=== PATIENT | male | born 1970 | race African-American/Black ===

== ENCOUNTER 2019-05-30 12:19 | Emergency (ER) | payer BC, SELFPAY ==
[2019-05-30 12:31] VITALS: BP 116/80; PULSE 88; RESP 18; TEMP 37; O2SAT 100
--- NOTE | 2019-05-30 12:58 | ED.GENADULT ---
HPI - General Adult General Chief complaint: Neck Pain/Injury Stated complaint: neck/arm pain Time Seen by Provider: 05/30/19 12:58 Source: patient and RN notes reviewed Mode of arrival: ambulatory Limitations: no limitations History of Present Illness HPI narrative: 48-year-old -[place] male presents with complaints of left shoulder pain for the past 4 days. Flexeril (last 05/27/19) and Naproxen (last 05/29/19) with some relief. No known injury. History of chronic back pain. Denies neck injuries or surgeries. Denies new numbness or tingling. Hurts with movement of shoulder. Intermittent pain radiates from top of shoulder down anterior arm into 3rd finger. No loss of mobility. No swelling. Exacerbating factor is movement. Relieving factor is rest and pain medication. The dominant hand is the RIGHT HAND. Remains active. Denies fever or chills. Denies nausea, vomiting, abdominal pain, shortness of breath, chest pain, or recent traveling. Some parts of this dictation were generated by voice recognition software and may contain typographical and/or grammatical inaccuracies. Related Data Home Medications Medication Instructions Recorded Confirmed albuterol sulfate [Ventolin HFA] 2 puff INHALATION QID 05/30/19 05/30/19 carvedilol [Coreg] 12.5 mg PO BID 05/30/19 05/30/19 cyclobenzaprine 10 mg PO HS 05/30/19 05/30/19 glimepiride 2 mg PO BID 05/30/19 05/30/19 hydrochlorothiazide 25 mg PO DAILY 05/30/19 05/30/19 hydrocodone-acetaminophen 1 tablet PO Q6H 05/30/19 05/30/19 losartan 12.5 mg PO DAILY 05/30/19 05/30/19 naproxen 500 mg PO BID 05/30/19 05/30/19 sitagliptin-metformin [Janumet] 1 tablet PO BID 05/30/19 05/30/19 tramadol 50 mg PO Q6H 05/30/19 05/30/19 Allergies Allergy/AdvReac Type Severity Reaction Status Date / Time morphine Allergy Intermediate Other Verified 09/07/18 18:36 lisinopril AdvReac Intermediate Cough Verified 09/07/18 18:36 NSAIDS (Non-Steroidal AdvReac Intermediate Other Verified 09/07/18 18:36 Anti-Inflamma Review of Systems Review of Systems: Narrative: CONSTITUTIONAL: Denies fever, chills, sweats. EYES: Denies visual changes, redness, discharge. ENT: Denies rhinorrhea, congestion, sore throat, otalgia. CARDIOVASCULAR: Denies chest pain, palpitations, edema. RESPIRATORY: Denies dyspnea, wheezing, cough. GASTROINTESTINAL: Denies abdominal pain, nausea, vomiting, diarrhea. GENITOURINARY: Denies dysuria, hematuria, abnormal discharge. SKIN: Denies rash or itching. MUSCULOSKELETAL: Denies acute back pain or myalgia. Complains of LT shoulder pain. NEUROLOGIC: Denies numbness or focal weakness. PSYCHIATRIC: Denies anxiety or depression. All other systems reviewed & are unremarkable except as noted in HPI and below. [facility] Past Medical History Medical History (Updated 05/30/19 @ 13:23 by MARGA Harley) Back pain Diabetes Hypertension Surgical History Surgical History (Updated 05/30/19 @ 13:12 by MARGA Harley) No significant past surgical history Family History Family History (Updated 05/30/19 @ 13:14 by MARGA Harley) Mother Diabetes mellitus Hypertension Father Diabetes mellitus Hypertension Social History Social History (Updated 05/30/19 @ 13:15 by MARGA Harley) Smoking status: Never smoker Tobacco type: cigarettes Second hand tobacco smoke exposure: No Alcohol intake: never Substance use: never Living arrangements: with family Occupation/Education: occupation Gender identity (if verbalized by the patient): Male Comments At time of signature, agree with nurse past medical, surgical, social, and family history. There is no relevant family history pertinent to the presenting complaint. Exam Narrative: Exam Narrative: GENERAL: This is a well-nourished, well-developed patient, in no apparent distress. Talks in full sentences and ambulates with steady gait without dyspnea. HEAD: normoce
[2019-05-30] MEDS: KETOROLAC (*BKC) 60 MG/2 ML VIAL IM (13:12)
--- NOTE | 2019-05-30 13:24 | PC.NURSE ---
1306- Pt states, he has taken Toradol before with no issues.
== END 2019-05-30 13:42 | disposition home or self-care (01) ==
PROVIDERS: Emergency Provider Nurse Practitioner Family
DX: M25.512 Pain in left shoulder (principal); E11.9 Type 2 diabetes mellitus without complications; I10 Essential (primary) hypertension
CPT/HCPCS: 96372; 99213; G0463; J1885

== ENCOUNTER 2019-06-27 10:19 | Emergency (ER) | payer BC, SELFPAY ==
[2019-06-27 10:29] VITALS: BP 130/82; PULSE 85; RESP 18; TEMP 37.3; O2SAT 99
--- NOTE | 2019-06-27 10:34 | ED.UPPEXIN ---
HPI - Extremity Injury (Upper) General Chief Complaint: Extremity Injury, Upper Stated Complaint: left arm pain Time Seen by Provider: 06/27/19 10:33 Source: patient and RN notes reviewed Mode of arrival: ambulatory Limitations: no limitations History of Present Illness HPI narrative: 48-year-old male presents with concern for left shoulder pain. Reports history of similar pain that started 1 month ago. Reports he was seen in this clinic and given an injection that helped. 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 Reports left lateral shoulder tenderness, pain when sleeping. Denies chest pain, shortness of breath, palpitations. Denies weakness, numbness to left arm or hand MD complaint: injury to: left and shoulder Related Data Home Medications Medication Instructions Recorded Confirmed albuterol sulfate [Ventolin HFA] 2 puff INHALATION QID 05/30/19 05/30/19 carvedilol [Coreg] 12.5 mg PO BID 05/30/19 05/30/19 cyclobenzaprine 10 mg PO HS 05/30/19 05/30/19 glimepiride 2 mg PO BID 05/30/19 05/30/19 hydrochlorothiazide 25 mg PO DAILY 05/30/19 05/30/19 hydrocodone-acetaminophen 1 tablet PO Q6H 05/30/19 05/30/19 losartan 12.5 mg PO DAILY 05/30/19 05/30/19 naproxen 500 mg PO BID 05/30/19 05/30/19 sitagliptin-metformin [Janumet] 1 tablet PO BID 05/30/19 05/30/19 tramadol 50 mg PO Q6H 05/30/19 05/30/19 Allergies Allergy/AdvReac Type Severity Reaction Status Date / Time morphine Allergy Intermediate Other Verified 09/07/18 18:36 lisinopril AdvReac Intermediate Cough Verified 09/07/18 18:36 NSAIDS (Non-Steroidal AdvReac Intermediate Other Verified 09/07/18 18:36 Anti-Inflamma Review of Systems Review of Systems: Narrative: CONSTITUTIONAL: Denies malaise, chills, sweats, or fever. CARDIOVASCULAR: Denies chest pain, palpitations, or edema. RESPIRATORY: Denies dyspnea. GASTROINTESTINAL: Denies abdominal pain, nausea, vomiting SKIN: Denies bruising, redness, swelling MUSCULOSKELETAL: Reports left shoulder pain NEUROLOGIC: Denies numbness, weakness All systems reviewed & are unremarkable except as noted in HPI and below PMFSH Past Medical History Medical History (Updated 06/27/19 @ 10:42 by Kalani Grant NP) Back pain Diabetes Hypertension Surgical History Surgical History (Updated 05/30/19 @ 13:12 by MARGA Harley) No significant past surgical history Family History Family History (Updated 05/30/19 @ 13:14 by MARGA Harley) Mother Diabetes mellitus Hypertension Father Diabetes mellitus Hypertension Social History Social History (Updated 05/30/19 @ 13:15 by MARGA Harley) Smoking status: Never smoker Tobacco type: cigarettes Second hand tobacco smoke exposure: No Alcohol intake: never Substance use: never Gender identity (if verbalized by the patient): Male Comments At time of signature, agree with nursing past medical, surgical, social and family history. There is no relevant family history pertinent to the presenting complaint Exam Narrative: Exam Narrative: GENERAL: Well-appearing, well-nourished, and in no acute distress. HEAD: Normocephalic, atraumatic. EYES: PERRLA, conjunctivae clear NECK: Supple. CHEST: Speaks in full sentences. No respiratory distress. HEART: Regular rate and rhythm. Normal and equal peripheral pulses. EXTREMITIES: Left shoulder, arm, digits of left hand have normal strength and sensation, no edema, normal range of motion. 5/5 strength with shoulder abduction and abduction. Normal sensation with sensitivity to light touch and pain. No open wounds, no skin tenting, no devitalized tissue or atrophy, no trophic changes, no ecchymosis, no obvious deformity, alignment normal, left lateral tenderness, nearby joints and structures intact. Distal pulses palpable and equal bilaterally, skin warm, dry, pink. Capillary refill less than 3 second
== END 2019-06-27 10:51 | disposition home or self-care (01) ==
PROVIDERS: Emergency Provider Nurse Practitioner
DX: S49.92XD Unspecified injury of left shoulder and upper arm, subsequent encounter (principal); I10 Essential (primary) hypertension; E11.9 Type 2 diabetes mellitus without complications; X50.0XXA Overexertion from strenuous movement or load, initial encounter
CPT/HCPCS: 99213; G0463

== ENCOUNTER 2020-09-19 01:09 | Day surgery (SDC) | payer BC, SELFPAY ==
[2020-09-18 14:30] VITALS: BMI 56.8
[2020-09-19] VITALS (8 sets, daily range): BP systolic 130–165; BP diastolic 89–103; PULSE 74–89; RESP 16–22; TEMP 36.3; O2SAT 97–100; BMI 56.9
[2020-09-19 08:10] LABS: Basophils Percent Auto 0.4 % (0.2-1.2); Eosinophils Absolute Auto 0.1 K/mm3 (0-0.3); Eosinophils Percent Auto 1.5 % (0-4.4); Hematocrit 41.9 % (42.0-52.0); Hemoglobin 13.7 g/dL (14.0-18.0); Immature Granulocyte Absolute 0.02 K/mm3 (0.00-0.031); Immature Granulocyte Percent A 0.3 % (0-0.5); Lymphocytes Absolute Auto 2.14 K/mm3 (0.9-3.2); Lymphocytes Percent Auto 32.1 % (18.3-44.2); Mean Corpuscular HGB Conc 32.7 g/dl (32-36); Mean Corpuscular Hemoglobin 28.8 pg (26-34); Mean Corpuscular Volume 88.2 fl (80-100); Mean Platelet Volume 9.3 fl (7.4-10.4); Monocytes Absolute Auto 0.7 K/mm3 (0.1-0.6); Monocytes Percent Auto 10.5 % (2.6-8.5); Neutrophils Absolute Auto 3.7 K/mm3 (1.3-6.7); Neutrophils Percent Auto 55.2 % (45.5-73.1); Platelet Count Result 209 k/mm3 (150-375); Red Blood Count 4.75 M/mm3 (4.6-6.20); Red Cell Distribution Width 12.5 % (11.5-14.5); White Blood Count 6.7 K/mm3 (4.5-10.0)
[2020-09-19 08:20] LABS: Anion Gap 9 mmol/L (8-16); Blood Urea Nitrogen 13 mg/dL (9-20); Calcium 9.6 mg/dL (8.4-10.2); Carbon Dioxide 28 mmol/L (22-30); Chloride 99 mmol/L (98-107); Estimated CRCL calculation 125 ml/min; Estimated Glomerular Filt Rate > 60; Glucose 188 mg/dL (65-110); Potassium 3.8 mmol/L (3.4-5.0); Sodium 136 mmol/L (137-145)
[2020-09-19 08:26] LABS: Prothrombin Time 12.6 Seconds (11.1-14.7)
--- NOTE | 2020-09-19 09:07 | PM.IMHP ---
H&P: HPI History of Present Illness Date/Time: 09/19/20 09:07 Chief Complaint: Patient is here for cardiac catheterization Narrative: this is 40 old patient history of hypertension, hyperlipidemia, type 2 diabetes, sleep apnea on CPAP who was evaluated by Dr. landrum prior to planned surgery for gastric bypass. He has been experiencing intermittent episodes of chest pain. Underwent stress test that shows small area of possible ischemia. Chest pain is intermittent, left chest pain with no aggravating or relieving factors. Denies shortness breath, lower limb edema, dizziness or syncope Review of Systems Review of Systems: All systems reviewed & are unremarkable except as noted in HPI and below Constitutional: Constitutional: Denies chills, Denies fatigue, Denies fever(s), Denies headache(s) and Denies snoring Eyes: Eyes: Denies eye discharge and Denies loss of vision ENT: Denies dizziness, Denies headache(s), Denies nasal discharge and Denies sore throat Cardiovascular: Cardiovascular: Reports as per HPI, Reports chest pain, Denies syncope, Denies rapid heart rate, Denies leg edema, Denies dyspnea, Denies dyspnea on exertion, Denies orthopnea and Denies paroxysmal nocturnal dyspnea Respiratory: Respiratory: Denies chest congestion, Denies cough, Denies dyspnea, Denies dyspnea on exertion, Denies snoring and Denies wheezing Gastrointestinal: Gastrointestinal: Denies abdominal pain, Denies diarrhea, Denies nausea and Denies vomiting Genitourinary: Genitourinary: Denies hematuria, Denies dysuria, Denies flank pain and Denies urinary frequency Musculoskeletal: Musculoskeletal: Denies myalgias, Denies arthralgias and Denies joint swelling Neurologic: Denies Abnormal speech present, Denies dizziness, Denies syncope, Denies headache(s), Denies focal weakness and Denies loss of vision Psychiatric: Psychiatric: Denies anxiety and Denies depression Endocrine: Endocrine: Denies cold intolerance, Denies fatigue and Denies heat intolerance Hematologic/Lymphatic: Hematologic/Lymphatic: Denies easy bleeding and Denies easy bruising Allergic/Immunologic: Allergic/Immunologic: Denies urticaria and Denies wheezing PMFSH Past Medical History Medical History Back pain Diabetes Hypertension Surgical History Surgical History No significant past surgical history Family History Family History Mother Diabetes mellitus Hypertension Father Diabetes mellitus Hypertension Social History Social History Smoking status: Never smoker Tobacco type: cigarettes Second hand tobacco smoke exposure: No Alcohol intake: never Substance use: never Substance use type: does not use Living arrangements: with family Gender identity (if verbalized by the patient): Male Spiritual care concerns: No Meds Home Medications and Allergies Home Medications Medication Instructions Recorded Confirmed Type carvedilol [Coreg] 12.5 mg PO BID 05/30/19 09/19/20 History cyclobenzaprine 10 mg PO HS 05/30/19 09/18/20 History glimepiride 2 mg PO BID 05/30/19 09/18/20 History hydrochlorothiazide 25 mg PO DAILY 05/30/19 09/18/20 History hydrocodone-acetaminophen 1 tablet PO Q6H 05/30/19 09/18/20 History losartan 12.5 mg PO DAILY 05/30/19 09/19/20 History naproxen 500 mg PO BID 05/30/19 09/18/20 History tramadol 50 mg PO Q6H 05/30/19 09/18/20 History pantoprazole 40 mg PO QAM 09/18/20 09/19/20 History rosuvastatin 20 mg PO DAILY 09/18/20 09/19/20 History semaglutide [Rybelsus] 7 mg PO DAILY 09/18/20 09/18/20 History Allergies Allergy/AdvReac Type Severity Reaction Status Date / Time lisinopril Allergy Intermediate Cough Verified 09/19/20 08:12 morphine Allergy Intermediate Drowsy Verified 09/19/20 08:12 ibuprof
--- NOTE | 2020-09-19 09:10 | WPDMODSED ---
Moderate Sedation Note-Pt Data Patient Data Allergies Allergy/AdvReac Type Severity Reaction Status Date / Time lisinopril Allergy Intermediate Cough Verified 09/19/20 08:12 morphine Allergy Intermediate Drowsy Verified 09/19/20 08:12 ibuprofen AdvReac Mild Gastrointestinal Verified 09/19/20 08:12 Upset Home Medications Medication Instructions Recorded Confirmed Type carvedilol [Coreg] 12.5 mg PO BID 05/30/19 09/19/20 History cyclobenzaprine 10 mg PO HS 05/30/19 09/18/20 History glimepiride 2 mg PO BID 05/30/19 09/18/20 History hydrochlorothiazide 25 mg PO DAILY 05/30/19 09/18/20 History hydrocodone-acetaminophen 1 tablet PO Q6H 05/30/19 09/18/20 History losartan 12.5 mg PO DAILY 05/30/19 09/19/20 History naproxen 500 mg PO BID 05/30/19 09/18/20 History tramadol 50 mg PO Q6H 05/30/19 09/18/20 History pantoprazole 40 mg PO QAM 09/18/20 09/19/20 History rosuvastatin 20 mg PO DAILY 09/18/20 09/19/20 History semaglutide [Rybelsus] 7 mg PO DAILY 09/18/20 09/18/20 History Current Medications: Active Medications Sodium Chloride (Normal Saline Iv) 500 mls @ 100 mls/hr IV CONT .Q5H KRYSTIN Sedation/Anesthesia: No previous sedation/anesthesia problems (including family history). [facility] Past Medical History Medical History Back pain Diabetes Hypertension Surgical History Surgical History No significant past surgical history Family History Family History Mother Diabetes mellitus Hypertension Father Diabetes mellitus Hypertension Social History Social History Smoking status: Never smoker Tobacco type: cigarettes Second hand tobacco smoke exposure: No Alcohol intake: never Substance use: never Substance use type: does not use Living arrangements: with family Gender identity (if verbalized by the patient): Male Spiritual care concerns: No Mod Sed Physical Exam Physical Exam Pre Procedural Exam: Normal: Appearance, Eyes, Ears, Nose, Neck, Throat, Airway, Lungs, Heart Size, Heart Rate, Heart Rhythm, Neuro Exam, Abdomen, Liver, Kidneys, Spleen, Breasts, Genitalia, Extremities and Skin Hours since solid foods: 8 Hours since liquid intake: 8 Mallampati Classification: class II Internal Medicine - PN: Obj Da Vital Signs Vital Signs: Vital Signs - 24 hr 09/19/20 08:20 Temperature 36.3 C L Pulse Rate 87 Respiratory Rate 18 Blood Pressure 146/91 H Pulse Oximetry 97 Meds/Results Medications: Active Medications Generic Name Dose Route Start Last Admin Trade Name Freq PRN Reason Stop Dose Admin Sodium Chloride 500 mls @ 100 mls/hr 09/19/20 07:30 Normal Saline Iv IV CONT .Q5H KRYSTIN Labs CBC & Chem 7: 09/19/20 08:01 09/19/20 08:01 Labs: Laboratory Results - last 24 hr 09/19/20 09/19/20 09/19/20 08:01 08:01 08:01 WBC 6.7 RBC 4.75 Hgb 13.7 L Hct 41.9 L MCV 88.2 MCH 28.8 MCHC 32.7 RDW 12.5 Plt Count 209 MPV 9.3 Immature Gran % (Auto) 0.3 Neut % (Auto) 55.2 Lymph % (Auto) 32.1 [place] % (Auto) 10.5 H Eos % (Auto) 1.5 Baso % (Auto) 0.4 Lymph # (Auto) 2.14 [place] # (Auto) 0.7 H Eos # (Auto) 0.1 Baso # (Auto) 0.0 Abs Immat Gran (auto) 0.02 Absolute Neuts (auto) 3.7 Absolute Nucleated RBC 0.0 Nucleated RBC % 0.0 PT 12.6 INR 1.0 Sodium 136 L Potassium 3.8 Chloride 99 Carbon Dioxide 28 Anion Gap 9 BUN 13 Creatinine 1.10 Estim Creat Clear Calc 125 Estimated GFR > 60 Glucose 188 H Calcium 9.6 ASA Classification/Sedation ASA Classification/Sedation ASA Class: I Emergent: No Risks: Risks, benefits and alternatives explained and patient/family accepted plan for sedation. Patient re-
--- NOTE | 2020-09-19 09:31 | WPDCARDPROC ---
Cardiac Cath Procedure Note Date of procedure:: 09/19/20 Performing physician:: Chiquita Reina MD Date of service 09/19/2020 Indication:: abnormal stress test Brief clinical history:: this is 49 old patient history of hypertension, hyperlipidemia, type 2 diabetes, sleep apnea on CPAP who was evaluated by Dr. landrum prior to planned surgery for gastric bypass. He has been experiencing intermittent episodes of chest pain. Underwent stress test that shows small area of possible ischemia. Chest pain is intermittent, left chest pain with no aggravating or relieving factors. Denies shortness breath, lower limb edema, dizziness or syncope Procedure Procedure performed:: 1-Moderate sedation that started at 9:44 a.m. and ended at 10:01 a.m. with total duration 16 minutes using 1mg of Versed and 25mcg fentanyl. The registered nurse was Maru Barbosa. 2-Selective left and right coronary angiogram. 3-Left heart catheterization with measurement of LVEDP and measurement of gradient across aortic valve. 4-Right common femoral arterial angiogram. 5-Deployment of 6 [place] Angio-Seal. Sedation/Medication given:: Moderate sedation. Access site:: Right common femoral artery. Estimated blood loss:: 10cc Procedure note:: After informed consent patient was brought in to rn cardiac cath with the was draped and prepped in usual manner. Moderate sedation was given and the right groin was infiltrated using 1% lidocaine. Five [place] sheath was obtained using micropuncture needle and the modified Seldinger technique. Selective left coronary angiogram was done using JL4 catheter with the tip of the catheter placed in the left main coronary artery. Selective right coronary angiogram was done using JR4 catheter with the tip of the catheter placed to the right coronary artery. After that 5 [place] pigtail catheter was advanced across the aortic valve into the left ventricle with measurement of LVEDP and measurement of gradient across aortic valve. Right common femoral arterial angiogram was done. Findings:: 1- left coronary artery is a large artery that divides into large LAD, large circumflex artery. Left main is free of disease. 2- left anterior descending artery is a large artery that runs and wraps around the apex. it is free of disease. There are 3 medium-sized diagonal branches are free of disease 3- leftcircumflex artery is a very large artery and dominant. free of disease. large OM1 and OM2 free of disease. left PDA medium in size and free of disease. 4- right coronary artery is medium in size and nondominant and free of disease 5- LVEDP was 15 mm Hg and no gradient across aortic valve. 6- opening arterial pressure was 130/80 and closing pressure was 120/70 7- right femoral artery angiogram shows no significant disease in the right common femoral artery. Conclusion:: - no coronary artery disease. - false-positive stress test. Assessment and Plan Additional Plan continue aggressive risk factor modification for CAD. Weight loss.
--- NOTE | 2020-09-19 13:30 | SUR.PHASEII ---
DISCHARGE INSTRUCTIONS GIVEN AND REVIEWED W/ PT. QUESTIONS ANSWERED. VOICED UNDERSTANDING OF ALL. NOTE RE: RETURN TO WORK AND RESTRICTIONS REQUIRED GIVEN PREPARED BY LINA BOBO NP. NO CHANGE IN R. GROIN SITE. GAUZE AND TEGADERM DRESSING C/D/I TO SITE. HAS ANGIOSEAL CLOSURE TO PUNCTURE. SITE SOFT, NONTENDER. NO BLEEDING OR HEMATOMA NOTED. R. PEDAL PULSE PALP STRONG. DISCHARGED HOME, OUT VIA WC TO 'S WAITING CAR, WITH ALL PERSONAL BELONGINGS AND DISCHARGE PACKET. VOICES NO C/O. NO DISTRESS NOTED.
== END 2020-09-19 13:30 | disposition home or self-care (01) ==
PROVIDERS: Visit Provider Internal Medicine Cardiovascular Disease
PROC: 4A023N7 Measurement of Cardiac Sampling and Pressure, Left Heart, Percutaneous Approach (ICD-10-PCS; CPT 93452; principal; 2020-09-19 09:00)
DX: R94.39 Abnormal result of other cardiovascular function study (principal); R07.9 Chest pain, unspecified; I10 Essential (primary) hypertension; E78.5 Hyperlipidemia, unspecified; E11.9 Type 2 diabetes mellitus without complications; G47.33 Obstructive sleep apnea (adult) (pediatric); E66.01 Morbid (severe) obesity due to excess calories; Z68.43 Body mass index [BMI] 50.0-59.9, adult
CPT/HCPCS: 36415; 80048; 85025; 85610; 93458; C1760; C1887; C1894; G0269; J1644; J2250; J3010; J7040

== ENCOUNTER 2020-12-31 14:19 | Emergency (ER) | payer BC, SELFPAY ==
[2020-12-31 14:28] VITALS: BP 151/93; PULSE 95; RESP 18; TEMP 36.5; O2SAT 100
[2020-12-31 17:01] VITALS: BP 128/92; PULSE 73; RESP 16; TEMP 37.1; O2SAT 99
[2020-12-31] MEDS: KETOROLAC (*BKC) 60 MG/2 ML VIAL IM (17:12)
--- NOTE | 2020-12-31 17:16 | ED.GENADULT ---
HPI - General Adult General Chief complaint: Neck Pain/Injury Stated complaint: neck pain Time Seen by Provider: 12/31/20 16:19 Source: patient Mode of arrival: ambulatory Limitations: no limitations History of Present Illness HPI narrative: Patient is a 50-year-old male with history of chronic back pain presenting with chief complaint of pain to the left side of his neck that has been present since September. Patient reports he followed up with his primary care regarding his symptoms and he was diagnosed with muscle spasm. Patient states that his symptoms persisted and he also noticed a small swelling to the posterior aspect of left side of his head so he came to the emergency department to be evaluated as the pain increased on today. Patient denies fever, chills, neck rigidity, trauma or any other symptoms. Related Data Home Medications Medication Instructions Recorded Confirmed carvedilol [Coreg] 12.5 mg PO BID 05/30/19 09/19/20 cyclobenzaprine 10 mg PO HS 05/30/19 09/18/20 glimepiride 2 mg PO BID 05/30/19 09/18/20 hydrochlorothiazide 25 mg PO DAILY 05/30/19 09/18/20 hydrocodone-acetaminophen 1 tablet PO Q6H 05/30/19 09/18/20 losartan 12.5 mg PO DAILY 05/30/19 09/19/20 naproxen 500 mg PO BID 05/30/19 09/18/20 tramadol 50 mg PO Q6H 05/30/19 09/18/20 Rybelsus 7 mg PO DAILY 09/18/20 09/18/20 pantoprazole 40 mg PO QAM 09/18/20 09/19/20 rosuvastatin 20 mg PO DAILY 09/18/20 09/19/20 Allergies Allergy/AdvReac Type Severity Reaction Status Date / Time lisinopril Allergy Intermediate Cough Verified 09/19/20 08:12 morphine Allergy Intermediate Drowsy Verified 09/19/20 08:12 ibuprofen AdvReac Mild Gastrointestinal Verified 09/19/20 08:12 Upset Review of Systems Review of Systems: CONSTITUTIONAL: Denies fever, chills, or sweats. EYES: Denies visual changes, redness, or discharge. ENT: Denies rhinorrhea, congestion, sore throat, or otalgia. CARDIOVASCULAR: Denies chest pain, palpitations, or edema. RESPIRATORY: Denies cough or dyspnea. GASTROINTESTINAL: Denies abdominal pain, nausea, vomiting, or diarrhea. GENITOURINARY: Denies dysuria or hematuria. SKIN: Reports swelling denies rash or itching. MUSCULOSKELETAL: Reports muscle pain denies back pain, joint pain NEUROLOGIC: Denies headache, numbness, dizziness, or weakness. PSYCHIATRIC: Denies anxiety or depression. PMFSH Past Medical History Medical History Back pain Diabetes Hypertension Surgical History Surgical History No significant past surgical history Family History Family History Mother Diabetes mellitus Hypertension Father Diabetes mellitus Hypertension Social History Social History Smoking status: Never smoker Tobacco type: cigarettes Second hand tobacco smoke exposure: No Alcohol intake: never Substance use: never Substance use type: does not use Gender identity (if verbalized by the patient): Male Spiritual care concerns: No Exam Narrative: GENERAL: Well-appearing, well-nourished, and in no acute distress. HEAD: Normocephalic, atraumatic. EYES: PERRLA and EOMI. ENT: Nares clear, no rhinorrhea or epistaxis. Mucous membranes moist. Oropharynx without tonsillar hypertrophy exudate or other lesions. Bilateral TMs pearly santos nonbulging NECK: Supple. No adenopathy or masses. Spasm palpated to the left paracervical muscle. There is a small mobile tender lymph node noted at the left nape of the neck. It is not erythematous or fluctuant no signs of infection. SKIN: Warm, dry, no rash. NEURO: No focal deficits. Alert and oriented x3. PSYCH: Normal mood and affect. Course Vital Signs Vital signs: Vital Signs Temperature 97.7 F 12/31/20 14:28 Pulse Rate 95 12/31/20 14:28 Respiratory Rate 1
[2020-12-31 17:42] VITALS: TEMP 37.1
== END 2020-12-31 18:10 | disposition home or self-care (01) ==
PROVIDERS: Emergency Provider Emergency Medicine
DX: M43.6 Torticollis (principal); R59.1 Generalized enlarged lymph nodes; E11.9 Type 2 diabetes mellitus without complications; I10 Essential (primary) hypertension; Z79.84 Long term (current) use of oral hypoglycemic drugs
CPT/HCPCS: 96372; 99283; J1885

== ENCOUNTER 2021-07-08 12:24 | Outpatient (CLI) | payer BC, SELFPAY ==
--- NOTE | 2021-07-08 12:33 | ECG_ITS ---
Measurements Intervals [place] Rate: 65 P: 30 ND: 166 QRS: 10 QRSD: 109 T: 22 QT: 407 QTc: 424 Interpretive Statements SINUS RHYTHM BASELINE WANDER- V4-V6 NORMAL ECG Electronically Signed On 07-08-2021 13:07:48 CDT by Randall Braxton D.O.
[2021-07-08 13:24] LABS: Anion Gap -4 mmol/L (8-16); Blood Urea Nitrogen 17 mg/dL (9-20); Calcium 9.3 mg/dL (8.4-10.2); Carbon Dioxide 37 mmol/L (22-30); Chloride 104 mmol/L (98-107); Estimated Glomerular Filt Rate > 60; Glucose 88 mg/dL (65-110); Potassium 3.7 mmol/L (3.4-5.0); Sodium 137 mmol/L (137-145)
== END 2021-07-08 12:25 | disposition home or self-care (01) ==
PROVIDERS: Anesthesiology; Visit Provider Urology
DX: Z01.818 Encounter for other preprocedural examination (principal); I10 Essential (primary) hypertension; E11.9 Type 2 diabetes mellitus without complications
CPT/HCPCS: 36415; 80048; 93005

== ENCOUNTER 2021-07-15 00:06 | Day surgery (SDC) | payer BC, SELFPAY ==
[2021-07-08 09:38] VITALS: BMI 35.2
--- NOTE | 2021-07-08 09:44 | PC.NURSE ---
Report to the Outpatient Waiting Room, entrance under the green pavilion located off [facility], at time ___0600____ on date 07/15/21____. OR Time: ____729____. - You and your visitor will be asked a series of questions to screen for COVID 19 for your protection. - Only one visitor is allowed at this time. - The patient visitor is requested to leave or wait in car when not with patient. - A mask is required within the hospital. Patients may have clear liquids (water, carbonated beverages, clear teas, apple juice) until 3 hours prior to surgery with a maximum of 20 ounces. - No food from midnight until time of surgery - Infants may have breast milk until 4 hours before surgery, infant formula 6 hours prior to surgery. - Children will be allowed to drink immediately following surgery. If applicable, please bring a bottle or sippy cup to assist with drinking. Juice, water, soda, and popsicles are readily available. For infants on formula, please bring formula the day of surgery. Pacifiers are allowed. Take the following medications with a SIP of water the morning of surgery: ___COREG, PAIN PILL IF NEEDED Medications to discontinue per physician VITAMINS AND SUPPLIMENTS Date to take last dose 07/11/21 Please no make-up, nail mauritian, hairspray, perfume, deodorant, or body powder the day of surgery. No jewelry (including any body piercings) or valuables the day of surgery, leave them at home. Please take a shower or bath the night before, or the morning of, surgery with an antibacterial soap. Wear comfortable, loose fitting clothing. Children are encouraged to wear pajamas. - Jewelry must be removed prior to entering the operating room. Rings and piercings that are not removed may be cut off. - The hospital will not accept responsibility for valuables. - Please leave all valuables, including medications, at home the day of surgery. If you are going home after surgery, a licensed pile driver operator must drive you home. - NO public transportation without another adult. - We recommend that an adult stay with you for 24 hours following discharge. - We also recommend that you do not drive, make important decision, drink alcoholic beverages, or take any drugs that were not prescribed by your health care provider for at least 24 hours after your discharge time. For Pediatric surgeries, we recommend two adults accompany the child home (only one inside the building at this time). Follow any additional instructions given to you from your surgeon. If you or anyone in your household have experienced Covid symptoms in the past week, please notify your surgeon or the nurse liaison at the phone number below for possible testing. Telephone instructions given to _PATIENT and asked if any additional questions and then verbalized understanding. Patient advised to call surgeon office or pre surgery nurse liaison [phone] if any additional questions.
[2021-07-15] VITALS (8 sets, daily range): BP systolic 125–149; BP diastolic 79–95; PULSE 57–81; RESP 14–20; TEMP 36.2–36.5; O2SAT 97–100
[2021-07-15] MEDS: LACTATED RINGERS 1,000 ML 30 ML IV CONT (06:30)
[2021-07-15 06:39] LABS: Glucose Point of Care 89 mg/dl (65-105)
--- NOTE | 2021-07-15 06:42 | WPDANESEPPF ---
Anes - Initial Pre Proc Eval Procedure: Operation Date: 07/15/21 07:30 Proposed Procedures p Bilateral Vasectomy with Scrotal Exploration - Ephraim Manriquez MD Date/Time: 07/15/21 06:42 Surgeon: Ephraim Manriquez MD Pre Op Diagnosis: male sterilization, Patient Data Age: 50 Gender: M Height: 1.83 m Weight: 118 kg Allergies Allergy/AdvReac Type Severity Reaction Status Date / Time lisinopril Allergy Intermediate Cough Verified 07/15/21 06:02 morphine AdvReac Intermediate Drowsy Verified 07/15/21 06:02 ibuprofen AdvReac Mild Gastrointestinal Verified 07/15/21 06:02 Upset Home Medications Medication Instructions Recorded Confirmed Type carvedilol 12.5 mg tablet (Coreg) 12.5 mg PO BID 05/30/19 07/15/21 History cyclobenzaprine 10 mg tablet 10 mg PO HS PRN back spasms 05/30/19 07/15/21 History hydrocodone 10 mg-acetaminophen 1 tablet PO Q6H PRN Back Pain 05/30/19 07/15/21 History 325 mg tablet tramadol 50 mg tablet 50 mg PO Q6H PRN Back Pain 05/30/19 07/08/21 History rosuvastatin 20 mg tablet 20 mg PO DAILY 09/18/20 07/15/21 History cholecalciferol (vitamin D3) 50 50 mcg PO DAILY 07/08/21 07/15/21 History mcg (2,000 unit) capsule (Vitamin D3) ferrous sulfate 325 mg (65 mg 325 mg PO DAILY 07/08/21 07/15/21 History iron) tablet (Iron (ferrous sulfate)) metformin 500 mg tablet 250 mg PO DAILY 07/08/21 07/15/21 History multivitamin with minerals-folic 1 tablet PO DAILY 07/08/21 07/15/21 History acid 200 mcg chewable tablet (Adult Multivitamin Gummies) potassium chloride 20 mEq 20 meq PO BID 07/08/21 07/15/21 History tablet,extended release(part/cryst) losartan 25 mg tablet 25 mg PO DAILY 07/15/21 07/15/21 History Laboratory Tests 07/15/21 06:35 POC Capillary Glucose 89 mg/dl mg/dl (65-105) Patient hx anesthesia problems: none Family hx anesthesia problems: none Results Review: All pre-operative results and documents have been reviewed as part of the pre-operative evaluation. [facility] Past Medical History Medical History (Updated 07/15/21 @ 06:45 by Memo Dickinson MD) Arthritis Back pain Chronic pain syndrome Diabetes Hyperlipidemia Hypertension [place] (obstructive sleep apnea) Surgical History Surgical History No significant past surgical history Family History Family History Mother Diabetes mellitus Hypertension Father Diabetes mellitus Hypertension Social History Social History Smoking status: Never smoker Tobacco type: cigarettes Second hand tobacco smoke exposure: No Alcohol intake: former Substance use: never Substance use type: does not use Other substance usage details: EDIBLES FOR PAIN ONCE MONTHLY Living arrangements: with family Gender identity (if verbalized by the patient): Male Spiritual care concerns: No Anes - Eval Final PreProcedure Day of Procedure 07/15/21 06:42 Heart: regular rate and rhythm Lungs: clear to auscultation Airway: Mallampati scale class II ASA classification: III Emergent: no Anesthetic plan: proceed Anesthesia type and monitoring: general LMA and standard monitoring Results Review: All pre-operative results and documents have been reviewed as part of the pre-operative evaluation. Informed Consent: The patient's anesthetic plan and its attendant risks and benefits were discussed with the patient/family/POA. Questions were solicited and answers provided to the satisfaction of the patient/family/POA.
--- NOTE | 2021-07-15 07:25 | WPDHPUPDATE1 ---
History and Physical Update Update Date/Time: 07/15/21 07:25 History and Physical has been reviewed, including an updated exam of the patient. There are NO changes in the patient's condition. Risks, benefits, and alternatives have been discussed and questions answered. Patient agrees to proceed with procedure. Proceed with bilateral vasectomy, possible scrotal exploration
--- NOTE | 2021-07-15 07:25 | PM.IMHP ---
H&P: HPI History of Present Illness Date/Time: 07/15/21 07:25 Chief Complaint: fertility Narrative: 50 year old male presents for bilateral vasectomy with possible scrotal exploration. Difficulty palpating left vas in the office. Review of Systems Review of Systems: All systems reviewed & are unremarkable except as noted in HPI and below PMFSH Past Medical History Medical History Arthritis Back pain Chronic pain syndrome Diabetes Hyperlipidemia Hypertension [place] (obstructive sleep apnea) Surgical History Surgical History No significant past surgical history Family History Family History Mother Diabetes mellitus Hypertension Father Diabetes mellitus Hypertension Social History Social History Smoking status: Never smoker Tobacco type: cigarettes Second hand tobacco smoke exposure: No Alcohol intake: former Substance use: never Substance use type: does not use Other substance usage details: EDIBLES FOR PAIN ONCE MONTHLY Living arrangements: with family Gender identity (if verbalized by the patient): Male Spiritual care concerns: No Meds Home Medications and Allergies Home Medications Medication Instructions Recorded Confirmed Type carvedilol 12.5 mg tablet (Coreg) 12.5 mg PO BID 05/30/19 07/15/21 History cyclobenzaprine 10 mg tablet 10 mg PO HS PRN back spasms 05/30/19 07/15/21 History hydrocodone 10 mg-acetaminophen 1 tablet PO Q6H PRN Back Pain 05/30/19 07/15/21 History 325 mg tablet tramadol 50 mg tablet 50 mg PO Q6H PRN Back Pain 05/30/19 07/08/21 History rosuvastatin 20 mg tablet 20 mg PO DAILY 09/18/20 07/15/21 History cholecalciferol (vitamin D3) 50 50 mcg PO DAILY 07/08/21 07/15/21 History mcg (2,000 unit) capsule (Vitamin D3) ferrous sulfate 325 mg (65 mg 325 mg PO DAILY 07/08/21 07/15/21 History iron) tablet (Iron (ferrous sulfate)) metformin 500 mg tablet 250 mg PO DAILY 07/08/21 07/15/21 History multivitamin with minerals-folic 1 tablet PO DAILY 07/08/21 07/15/21 History acid 200 mcg chewable tablet (Adult Multivitamin Gummies) potassium chloride 20 mEq 20 meq PO BID 07/08/21 07/15/21 History tablet,extended release(part/cryst) losartan 25 mg tablet 25 mg PO DAILY 07/15/21 07/15/21 History Allergies Allergy/AdvReac Type Severity Reaction Status Date / Time lisinopril Allergy Intermediate Cough Verified 07/15/21 06:02 morphine AdvReac Intermediate Drowsy Verified 07/15/21 06:02 ibuprofen AdvReac Mild Gastrointestinal Verified 07/15/21 06:02 Upset Vital Signs Vital Signs - 24 hr 07/15/21 06:05 Temperature 36.5 C Pulse Rate 81 Respiratory Rate 20 Blood Pressure 130/93 H Pulse Oximetry 100 Oxygen Delivery Room Air Exam Const: General: cooperative and no acute distress Eyes: General: appearance normal, both eyes and all related structures Chest: Chest palpation & inspection: normal inspection of the chest Resp: Effort & Inspection: normal respiratory effort Cardio: Rate: regular rate Rhythm: regular rhythm : Scrotum: scrotum normal Other: left vas difficult to isolate. Assessment and Plan Assessment and plan (1) Fertility testing: Code(s): Z31.41 - Encounter for fertility testing Status: Acute (2) Unwanted fertility: Code(s): Z30.09 - Encounter for other general counseling and advice on contraception Status: Acute Assessment and Plan: bilateral vasectomy with possible scrotal exploration
[2021-07-15] MEDS: ceFAZolin 2 GM/D5W 50 ML 2 GM/50 ML BAG IVPB (07:34)
--- NOTE | 2021-07-15 08:17 | W.PM.PROC2 ---
Procedure Note - Detailed Date of Procedure 07/15/21 Pre-op Diagnosis male sterilization, Post-op Diagnosis Same Procedure Performed BILATERAL VASECTOMY Surgeon Ephraim Manriquez MD Anesthesia General Description of Procedure PATIENT IS TAKEN TO THE OPERATIVE SUITE CORRECTLY IDENTIFIED. ONCE ANESTHESIA WAS OBTAINED WAS PLACED IN SUPINE POSITION AND PREPPED AND DRAPED USUAL STERILE FASHION. WITH HIM UNDER ANESTHETIC WE WERE ABLE TO ISOLATE BOTH VAS IS THROUGH MIDLINE INCISION. HE DOES HAVE A SOMEWHAT THICKER CORD IN EVEN WITH ANESTHETIC REQUIRED SOME MANIPULATION TO GET 2% BETWEEN MY FINGERS. IN THE LES WERE ABLE TO EXCISE A SEGMENT FULGURATE THE ENDS AND LIGATE THE ENDS. LIDOCAINE WAS USED TO ANESTHETIZE THE SKIN. SKIN WAS CLOSED USING 3-0 CHROMIC IN INTERRUPTED FASHION. PATIENT IS TAKEN RECOVERY ROOM STABLE CONDITION. GIVEN THE STANDARD POST VAS INSTRUCTIONS Estimated Blood Loss 0 Drains No Packing No Pathology Yes Complications No immediate complications Condition Stable Disposition PACU
[2021-07-15 08:28] LABS: Glucose Point of Care 82 mg/dl (65-105)
[2021-07-15] MEDS: oxyCODONE HCL (*CRX) 5 MG TAB IR PO (09:50)
== END 2021-07-15 09:55 | disposition home or self-care (01) ==
PROVIDERS: Visit Provider Urology
PROC: (CPT 55250; principal; 2021-07-15 07:30)
DX: Z30.2 Encounter for sterilization (principal); M19.90 Unspecified osteoarthritis, unspecified site; E11.9 Type 2 diabetes mellitus without complications; G89.4 Chronic pain syndrome; G47.33 Obstructive sleep apnea (adult) (pediatric); I10 Essential (primary) hypertension; E78.5 Hyperlipidemia, unspecified; F17.210 Nicotine dependence, cigarettes, uncomplicated; Z79.84 Long term (current) use of oral hypoglycemic drugs
CPT/HCPCS: 55250; 82948; 88300; A9270; J0690; J1100; J2250; J2405; J2704; J3010; J7120

== ENCOUNTER 2021-09-04 13:28 | Emergency (ER) | payer BC, SELFPAY ==
[2021-09-04 13:36] VITALS: BP 148/90; PULSE 74; RESP 18; TEMP 37.1; O2SAT 100
[2021-09-04 13:37] VITALS: BP 148/90; PULSE 74; RESP 18; TEMP 37.1; O2SAT 100
--- NOTE | 2021-09-04 13:49 | ED.WOUNDLAC ---
HPI - Wound/Laceration General Chief Complaint: Wound/Laceration Stated Complaint: non healing wound on back of thigh Time Seen by Provider: 09/04/21 13:50 Source: patient and RN notes reviewed Mode of arrival: ambulatory Limitations: no limitations History of Present Illness HPI narrative: 50-year-old male presents concern for a wound on the back of his left thigh. Reports its been there for approximately 2 days. Reports he is not sure if he got bit by something, but he noticed a painful bump on his leg that has gotten larger since yesterday. He denies drainage from the area. He denies open skin, other rash or wounds. He denies general malaise. Denies decreased musculoskeletal function. Related Data Home Medications Medication Instructions Recorded Confirmed carvedilol 12.5 mg tablet (Coreg) 12.5 mg PO BID 05/30/19 07/15/21 cyclobenzaprine 10 mg tablet 10 mg PO HS PRN back spasms 05/30/19 07/15/21 hydrocodone 10 mg-acetaminophen 1 tablet PO Q6H PRN Back Pain 05/30/19 07/15/21 325 mg tablet tramadol 50 mg tablet 50 mg PO Q6H PRN Back Pain 05/30/19 07/08/21 rosuvastatin 20 mg tablet 20 mg PO DAILY 09/18/20 07/15/21 cholecalciferol (vitamin D3) 50 50 mcg PO DAILY 07/08/21 07/15/21 mcg (2,000 unit) capsule (Vitamin D3) ferrous sulfate 325 mg (65 mg 325 mg PO DAILY 07/08/21 07/15/21 iron) tablet (Iron (ferrous sulfate)) metformin 500 mg tablet 250 mg PO DAILY 07/08/21 07/15/21 multivitamin with minerals-folic 1 tablet PO DAILY 07/08/21 07/15/21 acid 200 mcg chewable tablet (Adult Multivitamin Gummies) potassium chloride 20 mEq 20 meq PO BID 07/08/21 07/15/21 tablet,extended release(part/cryst) losartan 25 mg tablet 25 mg PO DAILY 07/15/21 07/15/21 Allergies Allergy/AdvReac Type Severity Reaction Status Date / Time lisinopril Allergy Intermediate Cough Verified 07/15/21 06:02 morphine AdvReac Intermediate Drowsy Verified 07/15/21 06:02 ibuprofen AdvReac Mild Gastrointestinal Verified 07/15/21 06:02 Upset Review of Systems Review of Systems: CONSTITUTIONAL: Denies malaise, chills, sweats, or fever. EYES: Denies redness, or discharge. ENT: Denies rhinorrhea, congestion, swollen lips, swollen tongue CARDIOVASCULAR: Denies chest pain, palpitations, or edema. RESPIRATORY: Denies cough or dyspnea. GASTROINTESTINAL: Denies abdominal pain, nausea, vomiting SKIN: Reports painful bump on the back of his left leg MUSCULOSKELETAL: Denies joint pain or myalgia. NEUROLOGIC: Denies headache. All systems reviewed & are unremarkable except as noted in HPI and below PMFSH Past Medical History Medical History Arthritis Back pain Chronic pain syndrome Diabetes Hyperlipidemia Hypertension [place] (obstructive sleep apnea) Surgical History Surgical History No significant past surgical history Family History Family History Mother Diabetes mellitus Hypertension Father Diabetes mellitus Hypertension Social History Social History Smoking status: Never smoker Tobacco type: cigarettes Second hand tobacco smoke exposure: No Alcohol intake: former Substance use: never Substance use type: does not use Other substance usage details: EDIBLES FOR PAIN ONCE MONTHLY Gender identity (if verbalized by the patient): Male Spiritual care concerns: No Comments At time of signature, agree with nursing past medical, surgical, social and family history. There is no relevant family history pertinent to the presenting complaint Exam Narrative: GENERAL: Well-appearing, well-nourished, and in no acute distress. HEAD: Normocephalic, atraumatic. EYES: PERRLA, conjunctivae clear, and EOMI. ENT: Mucous membranes moist. Oropharynx without edema, er
--- NOTE | 2021-09-04 14:30 | PC.NURSE ---
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
== END 2021-09-04 14:13 | disposition home or self-care (01) ==
PROVIDERS: Emergency Provider Nurse Practitioner
DX: L08.9 Local infection of the skin and subcutaneous tissue, unspecified (principal); B96.89 Other specified bacterial agents as the cause of diseases classified elsewhere; M19.90 Unspecified osteoarthritis, unspecified site; E11.9 Type 2 diabetes mellitus without complications; E78.5 Hyperlipidemia, unspecified; I10 Essential (primary) hypertension; G47.33 Obstructive sleep apnea (adult) (pediatric)
CPT/HCPCS: 99213; G0463

== ENCOUNTER 2021-12-07 14:36 | Emergency (ER) | payer OTHER, SELFPAY ==
--- NOTE | ~2021-12-07 | XR_ITS ---
EXAMINATION: XR chest 2V DATE: 12/07/2021 15:33 INDICATION: Chest pain TECHNIQUE: PA and lateral views of the chest are obtained. COMPARISON: 08/23/2018 FINDINGS: The lungs are free of acute opacities. No pleural effusion or pneumothorax. The cardiomedia stinal silhouette is normal. There is moderate thoracic spondylosis. IMPRESSION: 1. No acute cardiopulmonary abnormality. Reviewed, dictated and finalized at location F.
--- NOTE | 2021-12-07 14:39 | ECG_ITS ---
Measurements Intervals [place] Rate: 90 P: 62 VT: 160 QRS: 57 QRSD: 106 T: 55 QT: 370 QTc: 453 Interpretive Statements SINUS RHYTHM COMPARED TO ECG 07/08/2021 13:04:18 NO SIGNIFICANT CHANGES Electronically Signed On 12-07-2021 19:50:15 CDT by Allyson Mccain M.D.
[2021-12-07 14:47] VITALS: BP 128/76; PULSE 65; RESP 12; TEMP 37; O2SAT 98
[2021-12-07 15:14] LABS: Eosinophils Absolute Auto 0.1 K/mm3 (0-0.3); Eosinophils Percent Auto 4.4 % (0-4.4); Hematocrit 41.6 % (42.0-52.0); Hemoglobin 13.2 g/dL (14.0-18.0); Lymphocytes Absolute Auto 0.35 K/mm3 (0.9-3.2); Lymphocytes Percent Auto 13.9 % (18.3-44.2); Mean Corpuscular HGB Conc 31.7 g/dl (32-36); Mean Corpuscular Hemoglobin 29.9 pg (26-34); Mean Corpuscular Volume 94.1 fl (80-100); Mean Platelet Volume 9.3 fl (7.4-10.4); Monocytes Absolute Auto 0.3 K/mm3 (0.1-0.6); Monocytes Percent Auto 11.5 % (2.6-8.5); Neutrophils Absolute Auto 1.8 K/mm3 (1.3-6.7); Neutrophils Percent Auto 70.2 % (45.5-73.1); Platelet Count Result 130 k/mm3 (150-375); Red Blood Count 4.42 M/mm3 (4.6-6.20); White Blood Count 2.5 K/mm3 (4.5-10.0)
[2021-12-07 15:24] LABS: Alanine Aminotransferase 119 U/L (6-50); Albumin Level 4.7 g/dL (3.5-5.1); Alkaline Phosphatase 74 U/L (38-126); Anion Gap 17 mmol/L (8-16); Aspartate Amino Transferase 80 U/L (17-59); Bilirubin,Total 1.2 mg/dL (0.2-1.3); Blood Urea Nitrogen 14 mg/dL (9-20); Calcium 8.9 mg/dL (8.4-10.2); Carbon Dioxide 22 mmol/L (22-30); Chloride 100 mmol/L (98-107); Estimated Glomerular Filt Rate > 60; Glucose 82 mg/dL (65-110); Lipase 138 U/L (23-300); Potassium 3.9 mmol/L (3.4-5.0); Sodium 139 mmol/L (137-145)
[2021-12-07 15:27] LABS: INR 1.3; Prothrombin Time 15.3 Seconds (11.1-14.7)
[2021-12-07 15:28] LABS: Partial Thromboplastin Time 43.5 SECONDS (22.3-36.8)
[2021-12-07 15:35] LABS: Troponin I < 0.012 ng/mL (0.000-0.034)
[2021-12-07 16:22] VITALS: BP 130/93; PULSE 81; RESP 21; O2SAT 97
--- NOTE | 2021-12-07 17:28 | ED.URI ---
HPI - URI/Sore Throat General Chief Complaint: Chest Pain Stated Complaint: headache, numbness and tingling in extremities Time Seen by Provider: 12/07/21 16:45 History of Present Illness HPI Narrative: 50-year-old male presents with 2 days of chills, he is also endorsing some chest pain that started about a week ago, comes and goes, no cough or runny nose but he has been around plenty of sick people. He also has some occasional tingling at the tips of his fingertips Related Data Home Medications Medication Instructions Recorded Confirmed carvedilol 12.5 mg tablet (Coreg) 12.5 mg PO BID 05/30/19 07/15/21 cyclobenzaprine 10 mg tablet 10 mg PO HS PRN back spasms 05/30/19 07/15/21 hydrocodone 10 mg-acetaminophen 1 tablet PO Q6H PRN Back Pain 05/30/19 07/15/21 325 mg tablet tramadol 50 mg tablet 50 mg PO Q6H PRN Back Pain 05/30/19 07/08/21 rosuvastatin 20 mg tablet 20 mg PO DAILY 09/18/20 07/15/21 cholecalciferol (vitamin D3) 50 50 mcg PO DAILY 07/08/21 07/15/21 mcg (2,000 unit) capsule (Vitamin D3) ferrous sulfate 325 mg (65 mg 325 mg PO DAILY 07/08/21 07/15/21 iron) tablet (Iron (ferrous sulfate)) metformin 500 mg tablet 250 mg PO DAILY 07/08/21 07/15/21 multivitamin with minerals-folic 1 tablet PO DAILY 07/08/21 07/15/21 acid 200 mcg chewable tablet (Adult Multivitamin Gummies) potassium chloride 20 mEq 20 meq PO BID 07/08/21 07/15/21 tablet,extended release(part/cryst) losartan 25 mg tablet 25 mg PO DAILY 07/15/21 07/15/21 Allergies Allergy/AdvReac Type Severity Reaction Status Date / Time lisinopril Allergy Intermediate Cough Verified 07/15/21 06:02 morphine AdvReac Intermediate Drowsy Verified 07/15/21 06:02 ibuprofen AdvReac Mild Gastrointestinal Verified 07/15/21 06:02 Upset Review of Systems Review of Systems: CONST: Chills HEENT: No sore throat C/V: Intermittent chest pain RESP: No cough or shortness of breath GI: No nausea or vomiting or abdominal pain : Had had testicular pain but not currently M/S: Right foot pain. SKIN: No rash. NEURO: [Headache without any focal numbness or weakness] PSYCH: [No depression] [facility] Past Medical History Medical History Arthritis Back pain Chronic pain syndrome Diabetes Hyperlipidemia Hypertension [place] (obstructive sleep apnea) Surgical History Surgical History No significant past surgical history Family History Family History Mother Diabetes mellitus Hypertension Father Diabetes mellitus Hypertension Social History Social History Smoking status: Never smoker Tobacco type: cigarettes Second hand tobacco smoke exposure: No Alcohol intake: former Substance use: never Substance use type: does not use Other substance usage details: EDIBLES FOR PAIN ONCE MONTHLY Gender identity (if verbalized by the patient): Male Spiritual care concerns: No Exam Narrative: EXAMINATION OF ORGAN SYSTEMS/BODY AREAS: Constitutional: Vital signs per nursing GENERAL:[No acute distress, non-toxic appearing.] HEAD: Normal with no signs of head trauma. EYES: EOMI, conjunctiva normal ENT: Hearing grossly intact LUNGS: Nonlabored breathing. Clear to auscultation bilaterally. HEART: [Regular rate and rhythm], normal distal pulses ABD: [Soft], [nontender to palpation] EXT: Normal range of motion, very mild tenderness to palpation to the right upper foot SKIN: [No rashes or lesions.] NEURO: [Alert and oriented x 3. No gross focal sensory or strength deficits.] PSYCH: Normal affect Course Vital Signs Vital signs: Vital Signs Temperature 98.6 F 12/07/21 14:47 Pulse Rate 65 12/07/21 14:47 Respiratory Rate 12 12/07/21 14:47 Blood Pressure 128/76 12/07/21 14:47 Pulse Oximetry 98 12/07/21 14:4
[2021-12-07 17:56] LABS: Influenza A QL RT-PCR Negative (Negative); Influenza B QL RT-PCR Negative (Negative); SARS-CoV-2 RNA PCR Negative
[2021-12-07] MEDS: diphenhydrAMINE HCl CAP 25 MG CAPSULE 50 MG PO (18:27)
[2021-12-07] MEDS: predniSONE 40 MG, predniSONE 10 MG 50 MG PO (18:28)
[2021-12-07] MEDS: ACETAMINOPHEN 500 MG TABLET 1000 MG PO (18:28)
[2021-12-07] MEDS: METOCLOPRAMIDE HCL INJ 10 MG/2 ML VIAL IM (18:28)
--- NOTE | 2021-12-07 18:42 | PC.NURSE ---
Pt frustrated with care, no VS taken at time of DC.
== END 2021-12-07 18:42 | disposition home or self-care (01) ==
PROVIDERS: Emergency Medicine; Emergency Provider Emergency Medicine
DX: R07.89 Other chest pain (principal); J06.9 Acute upper respiratory infection, unspecified; R51.9 Headache, unspecified; Z20.822 Contact with and (suspected) exposure to COVID-19; E11.42 Type 2 diabetes mellitus with diabetic polyneuropathy; E78.5 Hyperlipidemia, unspecified; I10 Essential (primary) hypertension; G89.4 Chronic pain syndrome; M19.90 Unspecified osteoarthritis, unspecified site; G47.33 Obstructive sleep apnea (adult) (pediatric); Z79.84 Long term (current) use of oral hypoglycemic drugs
CPT/HCPCS: 36415; 71046; 80053; 83690; 84484; 85025; 85610; 85730; 87502; 93005; 96372; 99284; A9270; C9803; J2765; J7512; U0003; U0005

== ENCOUNTER 2022-08-17 10:41 | Emergency (ER) | payer OTHER, SELFPAY ==
[2022-08-17 10:53] VITALS: BP 143/84; PULSE 71; RESP 14; TEMP 37.3; O2SAT 100
--- NOTE | 2022-08-17 11:13 | ED.SKABFB ---
HPI - Skin/Abscess/Foreign Bdy General Chief complaint: Skin/Abscess/Foreign Body Stated complaint: left side lump on neck Time Seen by Provider: 08/17/22 11:13 Source: patient Mode of arrival: ambulatory Limitations: no limitations History of Present Illness HPI narrative: 51 y/o male presented for c/o red, painful raised area to the back of the left leg worsening for 2 days. Pain worse with sitting or touching the site. Denies drainage, streaking, n/v/d/f/c. Related Data Home Medications Medication Instructions Recorded Confirmed carvedilol 12.5 mg tablet (Coreg) 12.5 mg PO BID 05/30/19 07/15/21 cyclobenzaprine 10 mg tablet 10 mg PO HS PRN back spasms 05/30/19 07/15/21 hydrocodone 10 mg-acetaminophen 1 tablet PO Q6H PRN Back Pain 05/30/19 07/15/21 325 mg tablet tramadol 50 mg tablet 50 mg PO Q6H PRN Back Pain 05/30/19 07/08/21 rosuvastatin 20 mg tablet 20 mg PO DAILY 09/18/20 07/15/21 cholecalciferol (vitamin D3) 50 50 mcg PO DAILY 07/08/21 07/15/21 mcg (2,000 unit) capsule (Vitamin D3) metformin 500 mg tablet 250 mg PO DAILY 07/08/21 07/15/21 multivitamin with minerals-folic 1 tablet PO DAILY 07/08/21 07/15/21 acid 200 mcg chewable tablet (Adult Multivitamin Gummies) potassium chloride 20 mEq 20 meq PO BID 07/08/21 07/15/21 tablet,extended release(part/cryst) Allergies Allergy/AdvReac Type Severity Reaction Status Date / Time lisinopril Allergy Intermediate Cough Verified 08/17/22 11:01 morphine AdvReac Intermediate Drowsy Verified 08/17/22 11:01 ibuprofen AdvReac Mild Gastrointestinal Verified 08/17/22 11:01 Upset Review of Systems Review of Systems: CONSTITUTIONAL: Denies body aches, fever, chills, or sweats. EYES: Denies visual changes, redness, or discharge. ENT: Denies rhinorrhea, congestion CARDIOVASCULAR: Denies chest pain, palpitations, or edema. RESPIRATORY: Denies cough or dyspnea. GASTROINTESTINAL: Denies abdominal pain, nausea, vomiting, or diarrhea. SKIN: reports painful red knot to left leg MUSCULOSKELETAL: Denies back pain, joint pain, or myalgia. NEUROLOGIC: Denies headache, numbness, tingling, or weakness. [facility] Past Medical History Medical History Arthritis Back pain Chronic pain syndrome Diabetes Hyperlipidemia Hypertension [place] (obstructive sleep apnea) Surgical History Surgical History No significant past surgical history Family History Family History Mother Diabetes mellitus Hypertension Father Diabetes mellitus Hypertension Social History Social History Smoking status: Never smoker Tobacco type: cigarettes Second hand tobacco smoke exposure: No Alcohol intake: former Substance use: never Substance use type: does not use Other substance usage details: EDIBLES FOR PAIN ONCE MONTHLY Living arrangements: with family Occupation/Education: occupation Gender identity (if verbalized by the patient): Male Spiritual care concerns: No Comments At time of signature, I have reviewed and agree with nursing past medical, surgical, social and family history unless otherwise noted. Please see nursing chart for further information. There is no relevant family history pertinent to the presenting complaint Exam Narrative: GENERAL: Well-appearing HEAD: Normocephalic, atraumatic. EYES: conjunctivae clear, and EOMI. ENT: Mucous membranes moist. Oropharynx without edema, erythema or lesions. NECK: Supple. No lymphadenopathy CHEST: Clear to auscultation. HEART: Regular rate and rhythm. SKIN: Warm, dry. Left posterior/lateral leg with erythematous vesicular clustered lesions 3.5x2cm diameter, painful with light palpation, c/w zoster lesions; no induration, purulent drainage, streaking
== END 2022-08-17 11:28 | disposition home or self-care (01) ==
PROVIDERS: Emergency Provider Nurse Practitioner Family; PCP Internal Medicine
DX: B02.9 Zoster without complications (principal); M19.90 Unspecified osteoarthritis, unspecified site; E11.9 Type 2 diabetes mellitus without complications; E78.5 Hyperlipidemia, unspecified; I10 Essential (primary) hypertension
CPT/HCPCS: 99213; G0463

== ENCOUNTER 2024-03-06 11:46 | Emergency (ER) | payer OTHER, SELFPAY ==
--- NOTE | ~2024-03-06 | XR_ITS ---
EXAMINATION: XR finger 2nd RT min 2V DATE: 03/06/2024 12:07 INDICATION: Right hand second digit pain. Injury. TECHNIQUE: 3 views of right hand second digit were obtained. COMPARISON: None. FINDINGS: Alignment is normal. No fracture. There is mild osteoarthritis of second proximal and dista l interphalangeal joints. IMPRESSION: 1. Mild polyarticular osteoarthritis. Reviewed, dictated and finalized at location B. [facility]
[2024-03-06 11:57] VITALS: BP 111/79; PULSE 86; RESP 16; TEMP 37.1; O2SAT 99
--- NOTE | 2024-03-06 12:24 | ED_ITS ---
HPI - Extremity Injury (Upper) General Chief Complaint: Extremity Injury, Upper Stated Complaint: Jam finger in door Time Seen by Provider: 03/06/24 12:18 Source: patient and RN notes reviewed Mode of arrival: ambulatory Limitations: no limitations History of Present Illness HPI narrative: Patient presents today with an injury to his right 2nd finger. Two days ago a metal door closed on his finger at the proximal phalanx and it immediately swell and. He does have some mild tingling at the tip as well. Currently rates his pain at rest 2/10, but this increases significantly with bending of the finger. He has applied some ice and has taken some pain medication that he has at home ([place] and Celebrex) that has helped with his discomfort. Related Data Home Medications ?Medication ?Instructions ?Recorded ?Confirmed ?Last Taken ?Type carvedilol 12.5 mg tablet (Coreg) 12.5 mg PO BID 05/30/19 07/15/21 07/15/21 05:00 History cyclobenzaprine 10 mg tablet 10 mg PO HS PRN back spasms 05/30/19 07/15/21 07/11/21 History hydrocodone 10 mg-acetaminophen 1 tablet PO Q6H PRN Back Pain 05/30/19 07/15/21 07/10/21 History 325 mg tablet tramadol 50 mg tablet 50 mg PO Q6H PRN Back Pain 05/30/19 07/08/21 Unknown History rosuvastatin 20 mg tablet 20 mg PO DAILY 09/18/20 07/15/21 07/13/21 History cholecalciferol (vitamin D3) 50 50 mcg PO DAILY 07/08/21 07/15/21 07/12/21 History mcg (2,000 unit) capsule (Vitamin D3) metformin 500 mg tablet 250 mg PO DAILY 07/08/21 07/15/21 07/13/21 History multivitamin with minerals-folic 1 tablet PO DAILY 07/08/21 07/15/21 07/13/21 History acid 200 mcg chewable tablet (Adult Multivitamin Gummies) potassium chloride 20 mEq 20 meq PO BID 07/08/21 07/15/21 07/13/21 History tablet,extended release(part/cryst) Allergies Allergy/AdvReac Type Severity Reaction Status Date / Time lisinopril Allergy Intermediate Cough Verified 08/17/22 11:01 morphine AdvReac Intermediate Drowsy Verified 08/17/22 11:01 ibuprofen AdvReac Mild Gastrointestinal Verified 08/17/22 11:01 Upset Review of Systems Review of Systems: CONSTITUTIONAL: Denies body aches, fever, chills, or sweats. EYES: Denies visual changes, redness, or discharge. ENT: Denies rhinorrhea, congestion, sore throat, or otalgia. CARDIOVASCULAR: Denies chest pain, palpitations, or edema. RESPIRATORY: Denies cough or dyspnea. GASTROINTESTINAL: Denies abdominal pain, nausea, vomiting, or diarrhea. GENITOURINARY: Denies dysuria or hematuria. SKIN: Denies rash, itching, or wounds. MUSCULOSKELETAL: Denies back pain. + finger injury NEUROLOGIC: Denies headache, numbness, tingling, or weakness. PSYCH: Denies depression or anxiety. PMFSH Past Medical History Medical History Chronic pain syndrome Arthritis Hyperlipidemia [place] (obstructive sleep apnea) Back pain Diabetes Hypertension Surgical History Surgical History No significant past surgical history Family History Family History Mother Diabetes mellitus Hypertension Father Diabetes mellitus Hypertension Social History Social History Smoking status: Never smoker Tobacco type: cigarettes Second hand tobacco smoke exposure: No Alcohol intake: former Substance use: never Substance use type: does not use Other substance usage details: EDIBLES FOR PAIN ONCE MONTHLY Living arrangements: with family Occupation/Education: occupation Gender identity (if verbalized by the patient): Male Spiritual care concerns: No Comments At time of signature, I have reviewed and agree with nursing past medical, surgical, social and family history unless otherwise noted. Please see nursing chart for further information. There is no relevant family history pertinent to the presenting complaint Exam Narrative: GENERAL: Well-appearing, well-nourished, and in no acute distress. HEAD: Normocephalic, atraumatic. EYES: EOMI. No redness or drainage. Conjunctivae normal. ENT: Mucous membranes pink and moist. NECK: Normal AROM. CHEST: No respiratory distress. EXTREMITIES: Right 2nd finger: Tenderness to the D IP, proximal phalanx, and MCP with mild edema and faint ecchymosis noted. Distal sensation intact. Capillary refill. Range of motion strong against resistance. SKIN: Warm, dry, no rash. Capillary refill normal. Normal skin turgor. NEURO: No focal deficits. Alert and oriented x3. Gait steady. PSYCH: Normal affect. No signs of depression or anxiety. Course Course Level of Care: Express Care Visit Vital Signs Vital signs: Vital Signs Temperature 98.7 F 03/06/24 11:57 Pulse Rate 86 03/06/24 11:57 Respiratory Rate 16 03/06/24 11:57 Blood Pressure 111/79 03/06/24 11:57 Pulse Oximetry 99 03/06/24 11:57 Oxygen Delivery Room Air 03/06/24 11:57 Temperature 98.7 F 03/06/24 11:57 Pulse Rate 86 03/06/24 11:57 Respiratory Rate 16 03/06/24 11:57 Blood Pressure 111/79 03/06/24 11:57 Pulse Oximetry 99 03/06/24 11:57 Oxygen Delivery Room Air 03/06/24 11:57 Reviewed Procedures Orthopedic Splinting/Casting Injury #1: Splinting/Casting Date: 03/06/24 Splinting/Casting Time: 12:28 Side: right Upper Extremity Injury Location: finger Upper Extremity Immobilizer: aluminum form splint Pre-Procedure Neuro Vascular Exam: normal Post-Procedure Neuro Vascular Exam: normal Additional Comments: Placed by [facility] - Extremity Injury (Upper) [facility] Narrative Medical decision making narrative: X-ray shows osteoarthritis, but no fracture. Recommend continuing ice and home NSAIDs. Finger splint applied for protection. Anticipatory guidance given. Differential Diagnosis Differential diagnosis: Likely finger sprain and other (Contusion, finger fracture) Imaging Data Radiologist's impression: ITS Impressions Finger X-Ray 03/06/24 12:13 IMPRESSION: 1. Mild polyarticular osteoarthritis. Critical Care Time Critical Care Time Critical Care Time: No Discharge Plan Discharge Clinical Impression: Contusion of right index finger Qualifiers: Encounter type: initial encounter Damage to nail status: without damage Qualified Code(s): S60.021A - Contusion of right index finger without damage to nail, initial encounter Patient Disposition: Home, Self-Care Condition: Stable Instructions: Contusion in Adults (ED) Additional Instructions: Your x-ray is negative for fracture. Wear the splint for comfort and stability. Continue to apply ice and improving. Patient Language: Green[place]ic Prescriptions: No Action cyclobenzaprine 10 mg Tablet 10 mg PO HS PRN (Reason: back spasms) carvedilol [Coreg] 12.5 mg Tablet 12.5 mg PO BID hydrocodone-acetaminophen 10-325 mg Tablet 1 tablet PO Q6H PRN (Reason: Back Pain) tramadol 50 mg Tablet 50 mg PO Q6H PRN (Reason: Back Pain) lidocaine HCl 3 % lotion 1 applic topical TID PRN (Reason: pain) Qty: 177 0RF valacyclovir [Valtrex] 1 gram tablet 1,000 mg PO Q8H 7 Days Qty: 21 0RF metformin 500 mg Tablet 250 mg PO DAILY potassium chloride 20 mEq tablet,ER particles/crystals 20 meq PO BID cholecalciferol (vitamin D3) [Vitamin D3] 50 mcg (2,000 unit) Capsule 50 mcg PO DAILY Adult Multivitamin Gummies 200 mcg Tablet,Chewable 1 tablet PO DAILY rosuvastatin 20 mg Tablet 20 mg PO DAILY acetaminophen [Tylenol Extra Strength] 500 mg tablet 1,000 mg PO Q6H PRN (Reason: pain) Qty: 50 0RF Follow-up/Referrals: Conrad Short MD [Physician] - UNKNOWN,DOCTOR [Primary Care Provider] - Time of Disposition: 12:30
== END 2024-03-06 12:30 | disposition home or self-care (01) ==
PROVIDERS: Emergency Provider Nurse Practitioner
DX: S60.021A Contusion of right index finger without damage to nail, initial encounter (principal); X58.XXXA Exposure to other specified factors, initial encounter; I10 Essential (primary) hypertension; E11.9 Type 2 diabetes mellitus without complications; E78.5 Hyperlipidemia, unspecified; M19.90 Unspecified osteoarthritis, unspecified site
CPT/HCPCS: 29125; 73140; 99213; G0463

== ENCOUNTER 2024-04-10 14:41 | Emergency (ER) | payer OTHER, SELFPAY ==
[2024-04-10 14:53] VITALS: BP 144/86; PULSE 77; RESP 18; TEMP 37.1; O2SAT 100
--- NOTE | 2024-04-10 14:54 | ED.EXTPRO ---
HPI - Extremity Problem General Chief complaint: Extremity Injury, Upper Stated complaint: Right Hand /Finger Pain History of Present Illness HPI Narrative: Patient presents accompanied by his . He reports that about 5 weeks ago he got the tip of his right index finger stuck in a door. He was seen and treated at this facility for same. Says that now his entire hand hurts. He denies any more recent injury or trauma. He has been taking Celebrex and Vicodin for his symptoms, states that he gets no relief. He has not followed up with his primary care provider. He voices no other concerns or complaints at this time. He does retain full range of motion of the affected hand. Related Data Home Medications ?Medication ?Instructions ?Recorded ?Confirmed ?Last Taken ?Type carvedilol 12.5 mg tablet (Coreg) 12.5 mg PO BID 05/30/19 07/15/21 07/15/21 05:00 History cyclobenzaprine 10 mg tablet 10 mg PO HS PRN back spasms 05/30/19 07/15/21 07/11/21 History hydrocodone 10 mg-acetaminophen 1 tablet PO Q6H PRN Back Pain 05/30/19 07/15/21 07/10/21 History 325 mg tablet tramadol 50 mg tablet 50 mg PO Q6H PRN Back Pain 05/30/19 07/08/21 Unknown History rosuvastatin 20 mg tablet 20 mg PO DAILY 09/18/20 07/15/21 07/13/21 History cholecalciferol (vitamin D3) 50 50 mcg PO DAILY 07/08/21 07/15/21 07/12/21 History mcg (2,000 unit) capsule (Vitamin D3) metformin 500 mg tablet 250 mg PO DAILY 07/08/21 07/15/21 07/13/21 History multivitamin with minerals-folic 1 tablet PO DAILY 07/08/21 07/15/21 07/13/21 History acid 200 mcg chewable tablet (Adult Multivitamin Gummies) potassium chloride 20 mEq 20 meq PO BID 07/08/21 07/15/21 07/13/21 History tablet,extended release(part/cryst) Allergies Allergy/AdvReac Type Severity Reaction Status Date / Time lisinopril Allergy Intermediate Cough Verified 04/10/24 14:52 morphine AdvReac Intermediate Drowsy Verified 04/10/24 14:52 ibuprofen AdvReac Mild Gastrointestinal Verified 04/10/24 14:52 Upset Review of Systems Review of Systems: All systems reviewed & are unremarkable except as noted in HPI and below Constitutional: Constitutional: Reports no additional constitutional complaints ENT: Reports system reviewed and no additional complaints, except as documented Cardiovascular: Cardiovascular: Reports no additional cardiovascular complaints Respiratory: Respiratory: Reports no additional respiratory complaints Gastrointestinal: Gastrointestinal: Reports no additional gastrointestinal complaints Musculoskeletal: Musculoskeletal: Reports no additional musculoskeletal complaints and Reports as per HPI [facility] Past Medical History Medical History Chronic pain syndrome Arthritis Hyperlipidemia [place] (obstructive sleep apnea) Back pain Diabetes Hypertension Surgical History Surgical History No significant past surgical history Family History Family History Mother Diabetes mellitus Hypertension Father Diabetes mellitus Hypertension Social History Social History Smoking status: Never smoker Tobacco type: cigarettes Second hand tobacco smoke exposure: No Alcohol intake: former Substance use: never Substance use type: does not use Other substance usage details: EDIBLES FOR PAIN ONCE MONTHLY Living arrangements: with family Occupation/Education: occupation Gender identity (if verbalized by the patient): Male Spiritual care concerns: No Exam Const: General: cooperative, no acute distress, alert and awake Orientation/consciousness: oriented to person, oriented to place and oriented to time HENMT: Head: normal to inspection Resp: Effort & Inspection: normal respiratory effort and able to speak in complete sentences Auscultation: clear to auscultation bilaterally, no crackles, no rales, no rhonchi and no wheezes Cardio: Palpation: normal PMI Rate: regular rate Rhythm: regular rhythm Heart sounds: S1 normal heart sound present and S2 normal heart sound present Neuro: General: oriented to person, oriented to place and oriented to time Cranial nerves: Yes CN's II-XII intact bilaterally Extrem: Right upper extremity: normal to inspection, full ROM, normal capillary refill and Extremity exam: right hand normal capillary refill, neuromotor exam normal and tenderness of the palm centrally and of the 2nd digit involving the entire digit Psych: Appearance: grossly normal Thought process: Normal thought process present Insight: Good insight present (Psych) Judgement: Good judgement present (Psych) Course Course Level of Care: Express Care Visit MDM - Extremity (Nontraumatic) MDM Narrative Medical decision making narrative: Patient with pain to right hand after shutting the tip of the index finger into a door 5 weeks ago. Taking Vicodin and Celebrex. Try prednisone burst. Patient encouraged have lead follow with his primary care provider. Emergency department for new or worse symptoms. Discharge instructions reviewed with patient, as well as provided in writing per nursing staff. The instructions also include specific and strict return/GO TO THE ER as well as f/u information. All questions have been answered, and the patient deny any further questions with discharge and discharge plan. Some parts of this dictation were generated by voice recognition software and may contain typographical and/or grammatical inaccuracies. Differential Diagnosis Differential diagnosis: Likely gout Discharge Plan Discharge Clinical Impression: Hand pain, right Patient Disposition: Home, Self-Care Condition: Stable Instructions: Antibiotic Form Additional Instructions: Use medication as prescribed. Follow with primary care provider this week. Emergency department for new or worse symptoms Patient Language: Japanese Prescriptions: New prednisone 50 mg tablet 50 mg PO DAILY Qty: 5 0RF No Action cyclobenzaprine 10 mg Tablet 10 mg PO HS PRN (Reason: back spasms) carvedilol [Coreg] 12.5 mg Tablet 12.5 mg PO BID hydrocodone-acetaminophen 10-325 mg Tablet 1 tablet PO Q6H PRN (Reason: Back Pain) tramadol 50 mg Tablet 50 mg PO Q6H PRN (Reason: Back Pain) lidocaine HCl 3 % lotion 1 applic topical TID PRN (Reason: pain) Qty: 177 0RF valacyclovir [Valtrex] 1 gram tablet 1,000 mg PO Q8H 7 Days Qty: 21 0RF metformin 500 mg Tablet 250 mg PO DAILY potassium chloride 20 mEq tablet,ER particles/crystals 20 meq PO BID cholecalciferol (vitamin D3) [Vitamin D3] 50 mcg (2,000 unit) Capsule 50 mcg PO DAILY Adult Multivitamin Gummies 200 mcg Tablet,Chewable 1 tablet PO DAILY rosuvastatin 20 mg Tablet 20 mg PO DAILY acetaminophen [Tylenol Extra Strength] 500 mg tablet 1,000 mg PO Q6H PRN (Reason: pain) Qty: 50 0RF Follow-up/Referrals: PHYSICIAN,CLINICAL STAFF PHARMACIST [Non-Staff] - 3 Days Time of Disposition: 15:08
== END 2024-04-10 15:13 | disposition home or self-care (01) ==
PROVIDERS: Emergency Provider Nurse Practitioner Family
DX: M79.641 Pain in right hand (principal); I10 Essential (primary) hypertension; E11.9 Type 2 diabetes mellitus without complications; Z79.84 Long term (current) use of oral hypoglycemic drugs; E78.5 Hyperlipidemia, unspecified; M19.90 Unspecified osteoarthritis, unspecified site
CPT/HCPCS: 99213; G0463